=== PATIENT | male | born 1985 | race Caucasian/White ===

== ENCOUNTER 2019-05-01 11:12 | Day surgery (SDC) | payer MEDICAID ==
[~2019-05-01] VITALS: Ht 180.3 cm; Wt 83.9 kg
[~2019-05-01 11:12] MED LIST: PAR20T PO
[2019-05-01] MEDS ORDERED: ceFAZolin 1GM/50ML 50 ML IV ONE (12:36)
[2019-05-01] MEDS ORDERED: HYDROmorphone HCL 2 MG/ML VL ONE (12:42)
[2019-05-01] MEDS ORDERED: fentaNYL CITRATE 100 MCG/2 ML VL ONE (12:42)
[2019-05-01] MEDS ORDERED: SODIUM CHLORIDE LOCK 10 ML ONE (12:43)
[2019-05-01] MEDS ORDERED: fentaNYL CITRATE 5 ML ONE (12:43)
[2019-05-01] MEDS ORDERED: PROPOFOL 10 MG/ML 20 ML IV ONE (12:43)
[2019-05-01] MEDS ORDERED: ONDANSETRON HCL 4 MG/2 ML VIAL ONE (12:43)
[2019-05-01] MEDS ORDERED: MIDAZOLAM HCL 1MG/1ML-2 ML VIAL ONE (12:43)
[2019-05-01] MEDS ORDERED: BUPIVACAINE 0.25% INJ 50ML VIAL ONE (13:35)
[2019-05-01] MEDS ORDERED: LIDOCAINE 1% HCL (LOCAL ANESTH.) INJ 20ML MDV ONE (13:35)
[2019-05-01] MEDS ORDERED: ROCURONIUM 10MG/ML 10ML VIAL IV ONE (13:39)
[2019-05-01] MEDS ORDERED: SUCCINYLCHOLINE CHLORIDE 20 MG/ML 10ML VIAL IV ONE (13:39)
[2019-05-01] MEDS ORDERED: MORPHINE SULFATE 4 MG/ML SYR/VIAL IV PRN (13:45)
[2019-05-01] MEDS ORDERED: KETOROLAC TROMETH 15 mg/ml 1ML VL IV ONE (13:45)
[2019-05-01] MEDS ORDERED: fentaNYL CITRATE 100 MCG/2 ML VL IV PRN (13:45)
[2019-05-01] MEDS ORDERED: METOCLOPRAMIDE HCL 5MG/ml INJ 2ml VIAL IV PRN (13:45)
[2019-05-01] MEDS ORDERED: ceFAZolin 1GM VL ONE (14:00)
[2019-05-01] MEDS ORDERED: hydrALAZINE HCL 20 MG/ML VL ONE (15:40)
[2019-05-01] MEDS: HYDROmorphone HCL 2 MG/ML VL IV PRN ×2 (15:46→16:04)
[2019-05-01] MEDS ORDERED: hydrALAZINE HCL 20 MG/ML VL IV ONE ×2 (16:00→16:15)
[2019-05-01 16:23] VITALS: BP 132/84
== END 2019-05-01 16:37 | disposition home or self-care (01) ==
LOC: SUR 11:12
PROVIDERS: ATTEND Orthopaedic Surgery Adult Reconstructive Orthopaedic Surgery
DX: S42.021A Displaced fracture of shaft of right clavicle, initial encounter for closed fracture (principal); Z98.890 Other specified postprocedural states; Z79.899 Other long term (current) drug therapy; Y93.23 Activity, snow (alpine) (downhill) skiing, snowboarding, sledding, tobogganing and snow tubing; Y93.89 Activity, other specified; Y92.89 Other specified places as the place of occurrence of the external cause; Y99.8 Other external cause status
CPT/HCPCS: 23515; C1713; J0330; J0360; J0690; J1170; J1885; J2001; J2250; J2405; J2704; J3010; J3490; 73000; 76000

== ENCOUNTER 2020-01-18 00:45 | Emergency (ER) | payer MEDICAID ==
[~2020-01-18] VITALS: Ht 172.7 cm; Wt 90.7 kg
[2020-01-18] MEDS ORDERED: diphenhdrAMINE HCL 50 MG/1 ML VL IV ONE (01:00)
[2020-01-18] MEDS ORDERED: LORazepam 2MG/ML-1ML VIAL IV ONE (01:00)
[2020-01-18] MEDS ORDERED: HALOPERIDOL LACTATE 5 MG/ML INJ VIAL IM ONE (01:00)
[2020-01-18 01:28] LABS: Basophils # (auto) 0 10 ^3/uL (0-0.2); Basophils % (auto) 0.1 % (0.0-2.0); Eosinophils # (auto) 0 10 ^3/uL (0-0.8); Eosinophils % (auto) 0.1 % (0.0-7.0); Hematocrit 46.5 % (41.0-53.0); Lymphocytes # (auto) 1.5 10 ^3/uL (0.4-5.4); Lymphocytes % (auto) 7.6 % (10.0-50.0); Mean Corpuscular Hemoglobin 33.3 pg (28.0-32.0); Mean Corpuscular Hgb Conc. 34.4 g/dL (32.0-36.0); Mean Corpuscular Volume 96.8 fL (80.0-100.0); Monocytes # (auto) 1.1 10 ^3/uL (0-1.3); Monocytes % (auto) 5.7 % (0.0-12.0); Neutrophils # (auto) 17.4 10 ^3/uL (1.6-8.6); Neutrophils % (auto) 86.5 % (37.0-80.0); Platelet Count (auto) 290 10^3/uL (140-450); Red Cell Distribution Width 12.7 % (11.8-14.3); White Blood Cell 20.1 10^3/uL (4.4-10.8)
[2020-01-18 02:00] LABS: Alanine Aminotransferase 31 U/L (16-61); Albumin 5.2 g/dL (3.4-5.0); Anion Gap 9 (5-15); Aspartate Aminotransferase 21 U/L (15-37); BUN/Creatinine Ratio 9.1; Blood Alcohol < 3.0 mg/dL (0-5); Blood Urea Nitrogen 14 mg/dL (7-18); Calcium 9.3 mg/dL (8.5-10.1); Carbon Dioxide 23 mmol/L (21-32); Chloride 103 mmol/L (98-107); GFR African American 67 mL/min; GFR Non-African American 55 mL/min; Glucose 233 mg/dL (74-106); Salicylate < 1.7 mg/dL (2.8-20.0); Sodium 135 mmol/L (136-145)
[2020-01-18 02:03] LABS: Alkaline Phosphatase 73 U/L (45-117); Bilirubin, Total 0.5 mg/dL (0.2-1.0)
[2020-01-18 02:04] LABS: Acetaminophen < 2.0 ug/mL (10-30)
[2020-01-18 02:06] LABS: Potassium 2.8 mmol/L (3.5-5.1)
[2020-01-18] MEDS ORDERED: POTASSIUM EFFERVESENT TAB 25 MEQ PO ONE (02:30)
[2020-01-18] MEDS ORDERED: cefTRIAXone 1GM/50ML D5W 50 ML IV ONE (09:45)
[2020-01-18] MEDS ORDERED: SODIUM CHLORIDE 0.9% 1,000 ML IV ONE (09:45)
[2020-01-18 16:25] LABS: Urine WBC None Seen /hpf (0 - 3)
[2020-01-18 16:43] LABS: Urine Bacteria NONE SEEN /hpf (None Seen); Urine Blood Negative /uL (Negative); Urine Specific Gravity 1.005 (1.001-1.035)
[2020-01-18 17:01] LABS: Alcohol, Urine < 3.0 mg/dL (0-10); Amphetamine Screen, Urine NEGATIVE (NEGATIVE); Barbiturate Scree,Urine NEGATIVE (NEGATIVE); Benzodiazephine Screen, Urine NEGATIVE (NEGATIVE); Cannabinoid Screen, Urine POSITIVE (NEGATIVE); Cocaine Screen, Urine NEGATIVE (NEGATIVE); Opiate Scree,Urine NEGATIVE (NEGATIVE); Phencyclidine Screen, Urine NEGATIVE (NEGATIVE)
[2020-01-18] MEDS ORDERED: QUEtiapine FUMARATE 100 MG TAB PO SCH (21:15)
[2020-01-18] MEDS ORDERED: LORATADINE 10 MG TAB PO ONE (23:30)
[2020-01-18] MEDS ORDERED: ACETAMINOPHEN 325 MG TAB PO ONE (23:30)
[2020-01-19] MEDS ORDERED: IBUPROFEN 800 MG TAB PO ONE (10:00)
[2020-01-19] MEDS ORDERED: QUEtiapine FUMARATE 100 MG TAB ONE (22:11)
[2020-01-19] MEDS ORDERED: QUEtiapine FUMARATE 100 MG TAB PO SCH (22:15)
[2020-01-19] MEDS ORDERED: LORATADINE 10 MG TAB PO ONE (22:45)
[2020-01-20 09:49] VITALS: BP 125/80
[2020-01-20] MEDS ORDERED: LORATADINE 10 MG TAB PO SCH (10:00)
== END 2020-01-20 11:50 | disposition home or self-care (01) ==
LOC: EDBD 00:45 → ER 00:47
DX: F31.9 Bipolar disorder, unspecified (principal); E87.6 Hypokalemia; Z91.19 Patient's noncompliance with other medical treatment and regimen
CPT/HCPCS: 36415; 74176; 80053; 80307; 80320; 80329; 81001; 83605; 84132; 85025; 96365; 96375; 99285; J0696; J2060; J7030